=== PATIENT | female | born 1970 | race Caucasian/White ===

== ENCOUNTER → 2019-10-14 15:02 | Outpatient (BNVA) | payer OTHER, SELFPAY | PROVIDERS: Family Provider Internal Medicine; PCP Internal Medicine; Visit Provider Specialist | DX: R41.9 Unspecified symptoms and signs involving cognitive functions and awareness (principal) | CPT/HCPCS: 99213 ==

== ENCOUNTER → 2020-06-15 15:10 | Outpatient (BNVA) | payer OTHER, SELFPAY | PROVIDERS: Family Provider Internal Medicine; PCP Internal Medicine; Visit Provider Family Medicine | DX: Z11.59 Encounter for screening for other viral diseases (principal); Z20.828 Contact with and (suspected) exposure to other viral communicable diseases | CPT/HCPCS: 87635 ==

== ENCOUNTER → 2020-08-25 14:37 | Outpatient (BNVA) | payer OTHER, SELFPAY | PROVIDERS: Family Provider Internal Medicine; PCP Internal Medicine; Visit Provider Family Medicine | DX: Z20.828 Contact with and (suspected) exposure to other viral communicable diseases (principal) | CPT/HCPCS: 87635 ==

== ENCOUNTER → 2020-11-06 11:26 | Outpatient (BNVA) | payer OTHER, SELFPAY | PROVIDERS: Family Provider Internal Medicine; PCP Internal Medicine; Visit Provider Nurse Practitioner | DX: N39.0 Urinary tract infection, site not specified (principal) | CPT/HCPCS: 81000; 87077; 87086; 87184 ==

== ENCOUNTER → 2021-01-27 13:12 | Outpatient (BNVA) | payer OTHER, SELFPAY | PROVIDERS: Family Provider Internal Medicine; PCP Internal Medicine; Visit Provider Specialist | DX: M79.7 Fibromyalgia (principal); Z87.891 Personal history of nicotine dependence | CPT/HCPCS: 99213 ==

== ENCOUNTER → 2021-03-16 10:22 | Outpatient (BNVA) | payer OTHER, SELFPAY | PROVIDERS: Family Provider Internal Medicine; PCP Internal Medicine; Visit Provider Family Medicine | DX: Z20.822 Contact with and (suspected) exposure to COVID-19 (principal) | CPT/HCPCS: 87635 ==

== ENCOUNTER → 2021-08-12 08:53 | Outpatient (BNVA) | payer OTHER, SELFPAY | PROVIDERS: Family Provider Internal Medicine; PCP Internal Medicine; Visit Provider Family Medicine | DX: Z20.828 Contact with and (suspected) exposure to other viral communicable diseases (principal) | CPT/HCPCS: 87635 ==

== ENCOUNTER → 2021-09-02 11:21 | Outpatient (BNVA) | payer OTHER, SELFPAY | PROVIDERS: Family Provider Internal Medicine; PCP Internal Medicine; Visit Provider Family Medicine Adult Medicine | DX: N39.0 Urinary tract infection, site not specified (principal); R03.0 Elevated blood-pressure reading, without diagnosis of hypertension; R81 Glycosuria | CPT/HCPCS: 80053; 81000; 83036; 84443; 85025 ==

== ENCOUNTER → 2022-03-01 14:06 | Outpatient (BNVA) | payer OTHER, SELFPAY | PROVIDERS: Family Provider Internal Medicine; PCP Family Medicine Adult Medicine; Visit Provider Family Medicine Adult Medicine | DX: B34.9 Viral infection, unspecified (principal); R53.83 Other fatigue; R50.9 Fever, unspecified; J18.9 Pneumonia, unspecified organism | CPT/HCPCS: 85025; 86618; 86666; 86757 ==

== ENCOUNTER → 2022-04-11 10:35 | Outpatient (BNVA) | payer OTHER, SELFPAY | PROVIDERS: Family Provider Internal Medicine; PCP Family Medicine Adult Medicine; Visit Provider Family Medicine | DX: R30.0 Dysuria (principal) | CPT/HCPCS: 87086 ==

== ENCOUNTER → 2022-10-18 13:44 | Outpatient (BNVA) | payer OTHER, SELFPAY | PROVIDERS: Family Provider Internal Medicine; PCP Family Medicine Adult Medicine; Visit Provider Nurse Practitioner Family | DX: R39.9 Unspecified symptoms and signs involving the genitourinary system (principal); M62.830 Muscle spasm of back | CPT/HCPCS: 81000 ==

== ENCOUNTER 2022-10-24 12:10 | Outpatient (CLI) | payer OTHER, SELFPAY ==
--- NOTE | 2022-10-24 12:18 | XRR_ITS ---
PROCEDURE INFORMATION: Exam: XR Abdomen Exam date and time: 10/24/2022 12:19 PM Age: 51 years old Clinical indication: Condition or disease; Kidney or ureter condition; Calculus (stone) in kidney; Prior surgery; Surgery type: Lap quiana, appendectomy, hysterectomy, pacemaker; Additional info: Stone, kub today TECHNIQUE: Imaging protocol: Radiologic exam of the abdomen. Views: Frontal supine view of the abdomen. 1 View. COMPARISON: CR XR chest 2V* [id number] 09/29/2017 9:54 AM FINDINGS: Gastrointestinal tract: Normal. No bowel dilation. Other findings: There are no suspicious calcifications overlying the right or left renal fossa. There are small rounded calcifications in the pelvis presumed to represent pelvic phleboliths. Bones/joints: Unremarkable. XR/XR KUB [id number] IMPRESSION: Presumed pelvic phleboliths otherwise negative KUB.
== END 2022-10-24 12:11 | disposition home or self-care (01) ==
LOC: RAD 12:12
PROVIDERS: PCP Family Medicine Adult Medicine; Visit Provider Urology
DX: N20.0 Calculus of kidney (principal)
CPT/HCPCS: 74018; 82365; 88300

== ENCOUNTER 2022-12-14 06:39 | Outpatient (CLI) | payer OTHER, SELFPAY ==
--- NOTE | 2022-12-14 07:00 | CT_ITS ---
WS: [id number] CT ABDOMEN AND PELVIS NONCONTRAST HISTORY: RIGHT RENAL COLIC TECHNIQUE: Imaging performed through the abdomen and pelvis. Coronal and sagittal reformats are submi tted. All CT scans at [facility] use at least one of these dose optimization techniques: auto mated exposure control; mA and/or kV adjustment per patient size (includes targeted exams where dose is matched to clinical indication); or iterative reconstruction. DLP: 337.98 mGy.cm COMPARISON: No similar studies. Lower thorax: Lung bases are clear. Visualized heart is normal. No hiatal hernia. Liver: Normal size liver. No mass or bile duct dilatation. Gallbladder: Prior cholecystectomy. Pancreas: Normal size and attenuation. Slightly bulbous appearance to the pancreatic tail but no mass identified. Sagittal and coronal imaging is negative. Normal pancreatic duct. No pancreatitis or mas s. Spleen: Normal. Adrenal glands: Normal. No mass. Right kidney: Normal size kidney with no mass or hydronephrosis. Normal ureter. Left kidney: Nonobstructing 4 mm calcification lower pole. No perinephric stranding or obstruction. N egative ureter. Aorta: Normal abdominal aorta, no aneurysm or atherosclerosis. No free fluid, intraperitoneal air or significant lymphadenopathy. GI tract: Normal noncontrast imaging of the stomach, small bowel and colon. No obstruction or wall th ickening. Appendix is not identified. No secondary findings of appendicitis. Mild distal colon divert icular disease. No acute diverticulitis. Abdominal wall: Small umbilical hernia contains fat only. Pelvis: Hysterectomy. Negative urinary bladder. Bilateral phleboliths. Transitional vertebrae on the RIGHT L5-S1. Osseous structures: Unremarkable. CT/CT kidney stone [id number] IMPRESSION: 1. No renal obstruction or pyelonephritis identified by CT. 2. Nonobstructing calcification lower pole LEFT kidney. 3. No ascites or adenopathy. 4. Prior cholecystectomy. 5. Prior hysterectomy.
== END 2022-12-14 06:40 | disposition home or self-care (01) ==
LOC: RAD 06:41
PROVIDERS: PCP Family Medicine Adult Medicine; Visit Provider Urology
DX: N23 Unspecified renal colic (principal)
CPT/HCPCS: 74176

== ENCOUNTER → 2023-03-15 17:31 | Outpatient (BNVA) | payer OTHER, SELFPAY | PROVIDERS: PCP Family Medicine Adult Medicine; Visit Provider Specialist | DX: D75.89 Other specified diseases of blood and blood-forming organs (principal); J18.9 Pneumonia, unspecified organism; B34.9 Viral infection, unspecified; M79.7 Fibromyalgia; G31.84 Mild cognitive impairment of uncertain or unknown etiology; M25.559 Pain in unspecified hip; F02.80 Dementia in other diseases classified elsewhere, unspecified severity, without behavioral disturbance, psychotic disturbance, mood disturbance, and anxiety; G30.9 Alzheimer's disease, unspecified; R29.90 Unspecified symptoms and signs involving the nervous system; M54.50 Low back pain, unspecified; G89.29 Other chronic pain; G47.33 Obstructive sleep apnea (adult) (pediatric); Z99.89 Dependence on other enabling machines and devices | CPT/HCPCS: 80053; 82306; 82607; 85025 ==

== ENCOUNTER → 2023-03-29 09:59 | Outpatient (BNVA) | payer OTHER, SELFPAY | PROVIDERS: PCP Family Medicine Adult Medicine; Visit Provider Family Medicine Adult Medicine | DX: R30.0 Dysuria (principal); N20.0 Calculus of kidney; M54.50 Low back pain, unspecified; G89.29 Other chronic pain; M79.7 Fibromyalgia; G47.33 Obstructive sleep apnea (adult) (pediatric); Z99.89 Dependence on other enabling machines and devices; B34.9 Viral infection, unspecified | CPT/HCPCS: 81000 ==

== ENCOUNTER → 2024-07-23 13:23 | Outpatient (BNVA) | payer OTHER, SELFPAY | PROVIDERS: PCP Family Medicine Adult Medicine; Visit Provider Nurse Practitioner | DX: R39.9 Unspecified symptoms and signs involving the genitourinary system (principal) | CPT/HCPCS: 81000 ==

== ENCOUNTER 2024-12-17 06:00 | Outpatient (CLI) | payer OTHER, SELFPAY | END 2024-12-17 06:01 | disposition home or self-care (01) | LOC: RAD 12-20 16:21 | PROVIDERS: PCP Family Medicine Adult Medicine; Visit Provider Physical Therapist | DX: Z46.89 Encounter for fitting and adjustment of other specified devices (principal) | CPT/HCPCS: L4361 ==

== ENCOUNTER → 2025-03-11 16:05 | Outpatient (BNVA) | payer OTHER, SELFPAY | DX: R30.0 Dysuria (principal); Z76.89 Persons encountering health services in other specified circumstances; G47.33 Obstructive sleep apnea (adult) (pediatric); Z99.89 Dependence on other enabling machines and devices; I49.5 Sick sinus syndrome; R00.2 Palpitations | CPT/HCPCS: 80053; 80061; 81000; 84443; 85025; 87086 ==

== ENCOUNTER 2025-05-08 05:57 | Day surgery (SDC) | payer OTHER, SELFPAY ==
[2025-05-08 06:06] VITALS: BP 121/87; PULSE 77; RESP 16; TEMP 36.1; O2SAT 97
--- NOTE | 2025-05-08 06:08 | W.PM.OPSFHP ---
Same Day Surgery H&P Indication for Procedure/HPI DATE OF PROCEDURE: May 08, 2025 CHIEF COMPLAINT/INDICATIONFOR SURGICAL PROCEDURE: need for screening colonoscopy PREOP DIAGNOSIS: need for screening colonoscopy PLANNED PROCEDURE: Operation Date: 05/08/25 07:00 Proposed Procedures p Colonoscopy [id number] G0121 Z12.11(Not Applicable) - Suresh Gama MD Medications/Allergies* Home Medications ?Medication ?Instructions ?Recorded ?Confirmed ?Type gabapentin 800 mg tablet 800 mg PO QID 05/05/25 05/08/25 History venlafaxine 75 mg capsule,extended 75 mg PO DAILY 05/05/25 05/08/25 History release 24 hr Allergies/Adverse Reactions Allergy/AdvReac Type Severity Reaction Status Date / Time insect venom Allergy swelling Verified 05/08/25 06:07 Pertinent History/Comorbid Conditions* Medical History (Updated 03/14/25 @ 09:19 by Caprice Adler NP) Viral syndrome Fibromyalgia Reactive airway disease with wheezing with acute exacerbation BENNY on CPAP Symptomatic postsurgical menopause Endometriosis Tachy-preeti syndrome pacemaker placement 2016 Chronic low back pain Migraine headache Leg numbness Hx of Lt planar fasiitis COVID-19 08/12/2021 COVID+ test Surgical History (Updated 03/11/25 @ 15:43 by Caprice Adler NP) Hx of appendectomy Hx of cholecystectomy History of breast augmentation 1995 Hx of total hysterectomy with removal of both tubes and ovaries 05/29/2008 H/O cardiac radiofrequency ablation 2018 Family History (Updated 03/11/25 @ 15:42 by Caprice Adler NP) Father Diabetes Diabetes mellitus type 1 Father CAD (coronary artery disease) Arthritis Mother Atrial fibrillation Father Cancer Hypertension Denies family history of Stroke Social History Smoking and tobacco/nicotine status: former use of tobacco/nicotine Quit status (tobacco/nicotine): has quit using Year quit tobacco: 2004 Alcohol intake: current Alcohol intake frequency: holidays/special occasions only Substance/Drug Use: never Pertinent Exam Findings alert, oriented x 3 and clear to auscultation bilaterally Recommendations Surgery/Procedure today Coding Level of Care Code Acute Code for Chg Fwd
[2025-05-08 06:09] VITALS: BMI 32.0
--- NOTE | 2025-05-08 06:44 | ANES.PREANE2 ---
Pre-Anesthetic Assessment Height/Weight: Height 1.57 m Weight 79.379 kg Temp Pulse Resp BP Pulse Ox O2 Del Method 97 F L 77 16 121/87 97 Room Air 05/08/25 06:06 05/08/25 06:06 05/08/25 06:06 05/08/25 06:06 05/08/25 06:06 05/08/25 06:06 Preop Diagnosis: need for screening colonoscopy Operation Date: 05/08/25 07:00 Proposed Procedures p Colonoscopy [id number] G0121 Z12.11(Not Applicable) - Suresh Gama MD Familial anesthetic complications: none Was Beta Rachel taken within 24 hours: N/A Was Clonidine taken within 24 hours: N/A Last intake: Intake Last Liquid Date 05/07/25 Last Liquid Time 22:00 Last Solid Date 05/06/25 Last Solid Time 19:00 Social No alcohol and No tobacco Exam alert and oriented x 3 Airway Submandibular: within normal limits Cervical ROM: within normal limits Mallampati: Class II Dentition: full Comments: Comments: loose front top History/ROS No significant history except as noted Pulmonary Sleep Apnea (cpap) CV/HEM Palpitations pacemaker None reported Hepatic None reported GI Gastroesophageal Reflux Disease (occasional) Metabolic None reported Musc/skel Fibromyalgia Neuropsych None reported Anesthetic Plan ASA status: 3 Anesthesia: Anesthesia Evaluation and MAC Risk of > 500 ml blood loss (7ml/kg in children): No Medications/Allergies Home Medications ?Medication ?Instructions ?Recorded ?Confirmed ?Last Taken ?Type gabapentin 800 mg tablet 800 mg PO QID 05/05/25 05/08/25 05/08/25 History venlafaxine 75 mg capsule,extended 75 mg PO DAILY 05/05/25 05/08/25 05/08/25 History release 24 hr Allergies Allergy/AdvReac Type Severity Reaction Status Date / Time insect venom Allergy swelling Verified 05/08/25 06:07 Current Medications Generic Name Dose Route Start Last Admin Trade Name Freq PRN Reason Stop Dose Admin Sodium Chloride 1,000 mls @ 15 mls/hr 05/08/25 06:13 05/08/25 06:42 Sodium Chloride 0.9% IV 05/09/25 06:12 15 mls/hr .Q24H PRN Administration COLONOSCOPY FLUIDS PFSH Anesthesia Medical History (Updated 03/14/25 @ 09:19 by Caprice Adler NP) Viral syndrome Fibromyalgia Reactive airway disease with wheezing with acute exacerbation BENNY on CPAP Symptomatic postsurgical menopause Endometriosis Tachy-preeti syndrome pacemaker placement 2017 Chronic low back pain Migraine headache Leg numbness Hx of Lt planar fasiitis COVID-19 08/12/2021 COVID+ test Surgical History (Updated 03/11/25 @ 15:43 by Caprice Adler NP) Hx of appendectomy Hx of cholecystectomy History of breast augmentation 1995 Hx of total hysterectomy with removal of both tubes and ovaries 05/29/2008 H/O cardiac radiofrequency ablation 2018 Family History (Updated 03/11/25 @ 15:42 by Caprice Adler NP) Father Diabetes mellitus type 1 Atrial fibrillation Mother Arthritis Other CAD (coronary artery disease) Cancer Diabetes Hypertension Denies family history of Stroke Social History Smoking and tobacco/nicotine status: former use of tobacco/nicotine Quit status (tobacco/nicotine): has quit using Year quit tobacco: 2005 Alcohol intake: current Alcohol intake frequency: holidays/special occasions only Substance/Drug Use: never Female Reproductive History Spontaneous abortions: No
[2025-05-08 07:18] VITALS: BP 104/64; PULSE 65; RESP 16; TEMP 36.6; O2SAT 97
[2025-05-08 07:32] VITALS: BP 103/79; PULSE 62; RESP 16; TEMP 36.1; O2SAT 96
--- NOTE | 2025-05-08 08:17 | ANE.PACU2 ---
Inpatient post-anesthesia follow up: Airway intact: Yes Vital signs: Temperature 97 F Pulse Rate 62 Respiratory Rate 16 Blood Pressure 103/79 Pulse Oximetry 96 Oxygen Delivery Me thod Room Air Oxygen Flow Rate Fraction of Inspir ed Oxygen Hydration adequate: Yes Nausea and vomiting: No Pain level: 1 Mental status: Baseline
== END 2025-05-08 08:13 | disposition home or self-care (01) ==
PROVIDERS: Visit Provider Surgery
PROC: 0DJD8ZZ Inspection of Lower Intestinal Tract, Via Natural or Artificial Opening Endoscopic (ICD-10-PCS; CPT 45378; principal; 2025-05-08 07:00)
DX: Z12.11 Encounter for screening for malignant neoplasm of colon (principal); K64.4 Residual hemorrhoidal skin tags; G47.33 Obstructive sleep apnea (adult) (pediatric); Z99.89 Dependence on other enabling machines and devices; N80.9 Endometriosis, unspecified; I49.5 Sick sinus syndrome; M79.7 Fibromyalgia; Z87.891 Personal history of nicotine dependence
CPT/HCPCS: 45378; J2704; J7030